=== PATIENT | female | born 1965 | race Caucasian/White ===

== ENCOUNTER 2017-10-30 18:52 | Emergency (ER) | payer MEDICAID ==
[~2017-10-30] VITALS: Ht 157.5 cm; Wt 45.9 kg
[~2017-10-30 18:52] MED LIST: ALBU8.5H4 IH; GEMF600T3 PO; IBUP-1984 PO; MECL-69 PO; ONDA4TAB6 PO; ONDA8TAB6 PO; PANT40TA4 PO; POLY17PO10 PO; POTA20TA19 PO
[2017-10-30 18:54] VITALS: BP 124/85
[2017-10-30] MEDS ORDERED: TETanus/Pertussis (Acell)/Diphther VAC/PF (Tdap-Adult) 0.5ml syringe IM ONE (20:10)
[2017-10-30] MEDS ORDERED: bacitracin 15gm ointment TP ONE (20:10)
[2017-10-30] MEDS ORDERED: HYDR-565 PO (20:24)
[2017-10-30] MEDS ORDERED: ONDA4TAB9 PO (20:24)
[2017-10-30] MEDS ORDERED: ondansetron 4mg rapidly disintigrating tab PO ONE (20:25)
[2017-10-30] MEDS ORDERED: HYDROcodone/acetaminophen 10/325mg tab PO ONE (20:25)
== END 2017-10-30 20:44 | disposition home or self-care (01) ==
LOC: ER 18:52
DX: S43.401A Unspecified sprain of right shoulder joint, initial encounter (principal); S50.11XA Contusion of right forearm, initial encounter; S80.812A Abrasion, left lower leg, initial encounter; S80.811A Abrasion, right lower leg, initial encounter; E78.00 Pure hypercholesterolemia, unspecified; J44.9 Chronic obstructive pulmonary disease, unspecified; K21.9 Gastro-esophageal reflux disease without esophagitis; G89.29 Other chronic pain; Z98.890 Other specified postprocedural states; Z90.49 Acquired absence of other specified parts of digestive tract; Z88.0 Allergy status to penicillin; Z88.5 Allergy status to narcotic agent; Z79.899 Other long term (current) drug therapy; V29.9XXA Motorcycle rider (driver) (passenger) injured in unspecified traffic accident, initial encounter; Y93.89 Activity, other specified; Y92.413 State road as the place of occurrence of the external cause; Y99.9 Unspecified external cause status
CPT/HCPCS: 73090; 73130; 90471; 90715; 99284; A4565; A6255; A6449

== ENCOUNTER 2017-11-04 13:48 | Emergency (ER) | payer MEDICAID ==
[~2017-11-04] VITALS: Ht 156.2 cm; Wt 45.0 kg
[~2017-11-04 13:48] MED LIST changes: +HYDR-565 PO; +ONDA4TAB9 PO
[2017-11-04 16:53] VITALS: BP 122/81
== END 2017-11-04 16:54 | disposition home or self-care (01) ==
LOC: ER 13:53
DX: S83.91XA Sprain of unspecified site of right knee, initial encounter (principal); S10.91XA Abrasion of unspecified part of neck, initial encounter; S60.811A Abrasion of right wrist, initial encounter; S40.211A Abrasion of right shoulder, initial encounter; E78.00 Pure hypercholesterolemia, unspecified; J44.9 Chronic obstructive pulmonary disease, unspecified; G89.29 Other chronic pain; K21.9 Gastro-esophageal reflux disease without esophagitis; Z90.49 Acquired absence of other specified parts of digestive tract; Z88.0 Allergy status to penicillin; Z88.5 Allergy status to narcotic agent; Z79.899 Other long term (current) drug therapy; W18.39XA Other fall on same level, initial encounter; Y93.89 Activity, other specified; Y92.89 Other specified places as the place of occurrence of the external cause; Y99.8 Other external cause status
CPT/HCPCS: 29505; 72040; 73502; 73564; 73610; 99284

== ENCOUNTER 2018-03-29 18:36 | Emergency (ER) | payer MEDICAID ==
[~2018-03-29] VITALS: Ht 157.5 cm; Wt 45.0 kg
[~2018-03-29 18:36] MED LIST changes: -HYDR-565 PO; -ONDA4TAB9 PO
[2018-03-29] MEDS ORDERED: metoclopramide 5 mg/ml inj IV ONE (19:25)
[2018-03-29] MEDS ORDERED: diphenhydrAMINE 50 mg/ml inj IV ONE (19:25)
[2018-03-29] MEDS ORDERED: normal saline 1000ML IV soln IVB ONE (19:25)
[2018-03-29] MEDS ORDERED: LORazepam 2 mg/ml vial IV ONE (19:25)
[2018-03-29 20:44] VITALS: BP 101/58
== END 2018-03-29 20:46 | disposition home or self-care (01) ==
LOC: ER 18:37
DX: G43.909 Migraine, unspecified, not intractable, without status migrainosus (principal); E78.00 Pure hypercholesterolemia, unspecified; J44.9 Chronic obstructive pulmonary disease, unspecified; K21.9 Gastro-esophageal reflux disease without esophagitis; G89.29 Other chronic pain; Z90.49 Acquired absence of other specified parts of digestive tract; Z88.0 Allergy status to penicillin; Z88.5 Allergy status to narcotic agent; Z79.899 Other long term (current) drug therapy
CPT/HCPCS: 70450; 96374; 96375; 99284; J1200; J2060; J2765; J7030

== ENCOUNTER 2018-04-14 00:32 | Emergency (ER) | payer MEDICAID ==
[~2018-04-14] VITALS: Ht 154.9 cm; Wt 42.0 kg
[2018-04-14 00:44] VITALS: BP 140/72
== END 2018-04-14 01:53 | disposition left against medical advice (07) ==
LOC: ER 00:32
DX: M79.642 Pain in left hand (principal); Z53.21 Procedure and treatment not carried out due to patient leaving prior to being seen by health care provider

== ENCOUNTER 2020-02-13 18:03 | Emergency (ER) | payer MEDICAID ==
[~2020-02-13] VITALS: Ht 157.5 cm; Wt 44.3 kg
[~2020-02-13 18:03] MED LIST changes: +CEPH-571 PO; -GEMF600T3 PO; +GEMF600T89 PO
--- NOTE | 2020-02-13 19:12 | NUR ---
LAB DRAW DONE BY FLOTATION TANK OPERATOR
[2020-02-13 19:27] LABS: URINE HCG NEGATIVE (NEG)
[2020-02-13 19:31] LABS: BASOPHILS % (AUTO) 0.5 % (0-1); EOSINOPHILS # (AUTO) 0.1 X10'3 (0-0.9); EOSINOPHILS % (AUTO) 0.6 % (0-6); HEMATOCRIT 46.7 % (35.0-45.0); HEMOGLOBIN 15.7 g/dl (12.0-16.0); LYMPHOCYTES # (AUTO) 3.3 X10'3 (1.1-4.8); LYMPHOCYTES % (AUTO) 33.8 % (21-51); MEAN CORPUSCULAR HEMOGLOBIN 32.9 PG (27.0-31.0); MEAN CORPUSCULAR HGB CONC 33.6 g/dL (33.0-36.5); MEAN CORPUSCULAR VOLUME 97.7 FL (78-98); MEAN PLATELET VOLUME 9.2 FL (7.4-10.4); MONOCYTES # (AUTO) 0.7 X10'3 (0-0.9); MONOCYTES % (AUTO) 7.5 % (2-12); NEUTROPHILS # (AUTO) 5.6 X10'3 (1.8-7.7); NEUTROPHILS % (AUTO) 57.6 % (42-75); PLATELET COUNT 246 X10'3 (140-440); RED BLOOD COUNT 4.78 X10'6 (4.20-5.60); WHITE BLOOD COUNT 9.7 X10'3 (4.5-11.0)
[2020-02-13 19:33] LABS: CLARITY,URINE CLEAR (Clear); COLOR,URINE STRAW (Yellow); GLUCOSE, URINE NEGATIVE (Neg); KETONES,URINE NEGATIVE (Neg); LEUKOCYTE ESTERASE ,URINE NEGATIVE (Neg); NITRITES, URINE NEGATIVE (Neg); OCCULT BLOOD,URINE NEGATIVE (Neg); PROTEIN,URINE NEGATIVE (Neg); UROBILINOGEN,URINE 0.2 E.U/dL (0.2-1.0)
[2020-02-13] MEDS ORDERED: LIDOcaine Viscous 15ml cup MM ONE (19:40)
[2020-02-13] MEDS ORDERED: mag hydrox/Alum hydrox/simeth 30ml oral suspension PO ONE (19:40)
[2020-02-13 19:45] LABS: UA COLLECTION TYPE CLN CATCH MIDSTREAM
[2020-02-13 19:46] LABS: ALANINE AMINOTRANSFERASE 16 U/L (12-78); ALBUMIN/GLOBULIN RATIO 1.2 (1.1-1.5); ALKALINE PHOSPHATASE 170 IU/L (46-116); ANION GAP 11 (8-16); ASPARTATE AMINO TRANSFERASE 22 U/L (10-37); BILIRUBIN,TOTAL 0.2 MG/DL (0.1-1.0); BLOOD UREA NITROGEN 11 MG/DL (7-18); BUN/CREATININE RATIO 13.1 (6.6-38.0); CALCIUM 9.2 MG/DL (8.5-10.1); CHLORIDE 104 MMOL/L (99-107); CREATININE 0.84 MG/DL (0.40-0.90); GLUCOSE 99 MG/DL (70-104); LIPASE 211 U/L (73-393); POTASSIUM 3.7 MMOL/L (3.5-5.1); SODIUM 141 MMOL/L (135-145); TOTAL CARBON DIOXIDE 25.8 MMOL/L (24-32); TOTAL PROTEIN 7.4 G/DL (6.4-8.2); eGFR 71 ML/MIN
[2020-02-13] MEDS ORDERED: OMEP40CA13 PO (20:43)
[2020-02-13] MEDS ORDERED: SUCR1TAB PO (20:43)
[2020-02-13 20:53] VITALS: BP 138/72
== END 2020-02-13 20:57 | disposition home or self-care (01) ==
LOC: ER 18:04
DX: R10.13 Epigastric pain (principal); R11.0 Nausea; J44.9 Chronic obstructive pulmonary disease, unspecified; K21.9 Gastro-esophageal reflux disease without esophagitis; G89.29 Other chronic pain; F41.9 Anxiety disorder, unspecified; F32.9 Major depressive disorder, single episode, unspecified; F17.210 Nicotine dependence, cigarettes, uncomplicated; Z90.49 Acquired absence of other specified parts of digestive tract; Z98.890 Other specified postprocedural states; Z88.0 Allergy status to penicillin; Z88.5 Allergy status to narcotic agent; Z79.2 Long term (current) use of antibiotics; Z79.899 Other long term (current) drug therapy
CPT/HCPCS: 36415; 80053; 81003; 81025; 83690; 85025; 99283

== ENCOUNTER 2022-07-05 23:35 | Emergency (ER) | payer MEDICAID ==
[~2022-07-05] VITALS: Ht 157.5 cm; Wt 43.2 kg
[~2022-07-05 23:35] MED LIST changes: -PANT40TA4 PO; +PANT40TA54 PO; +POTA-207 PO; -POTA20TA19 PO; +SUCR1TAB PO
[2022-07-05 23:57] LABS: BASOPHILS % (AUTO) 0.3 % (0-1); EOSINOPHILS % (AUTO) 0.3 % (0-6); HEMATOCRIT 43.3 % (35.0-45.0); HEMOGLOBIN 14.8 g/dl (12.0-16.0); LYMPHOCYTES # (AUTO) 2.7 X10'3 (1.1-4.8); LYMPHOCYTES % (AUTO) 29.5 % (21-51); MEAN CORPUSCULAR HEMOGLOBIN 32.2 PG (27.0-31.0); MEAN CORPUSCULAR HGB CONC 34.1 g/dL (33.0-36.5); MEAN CORPUSCULAR VOLUME 94.5 FL (78-98); MEAN PLATELET VOLUME 8.6 FL (7.4-10.4); MONOCYTES # (AUTO) 0.7 X10'3 (0-0.9); NEUTROPHILS # (AUTO) 5.7 X10'3 (1.8-7.7); NEUTROPHILS % (AUTO) 61.9 % (42-75); PLATELET COUNT 243 X10'3 (140-440); RED BLOOD COUNT 4.58 X10'6 (4.20-5.60); RED CELL DISTRIBUTION WIDTH 13.7 % (11.5-14.5); WHITE BLOOD COUNT 9.2 X10'3 (4.5-11.0)
[2022-07-06 00:07] LABS: ALANINE AMINOTRANSFERASE 16 U/L (12-78); ALBUMIN 3.7 G/DL (3.4-5.0); ALKALINE PHOSPHATASE 176 IU/L (46-116); ANION GAP 14 (8-16); ASPARTATE AMINO TRANSFERASE 17 U/L (10-37); BILIRUBIN,TOTAL 0.2 MG/DL (0.1-1.0); BLOOD UREA NITROGEN 6 MG/DL (7-18); BUN/CREATININE RATIO 10.3 (6.6-38.0); CALCIUM 9.2 MG/DL (8.5-10.1); CHLORIDE 104 MMOL/L (99-107); CREATININE 0.58 MG/DL (0.40-0.90); GLUCOSE 107 MG/DL (70-104); POTASSIUM 3.4 MMOL/L (3.5-5.1); SODIUM 142 MMOL/L (135-145); TOTAL CARBON DIOXIDE 23.6 MMOL/L (24-32); TOTAL PROTEIN 7.3 G/DL (6.4-8.2); eGFR > 90 ML/MIN
[2022-07-06] MEDS ORDERED: predniSONE 20 mg tablet PO ONE (00:40)
[2022-07-06] MEDS ORDERED: ipratropium/albuterol 3ml nebule NEB ONE (00:40)
[2022-07-06] MEDS ORDERED: PRED20TA PO (01:11)
[2022-07-06] MEDS ORDERED: BUDE10.22 INH (01:11)
[2022-07-06] MEDS ORDERED: ALBU18HF2 INH (01:11)
[2022-07-06 01:36] VITALS: BP 126/60
== END 2022-07-06 01:38 | disposition home or self-care (01) ==
LOC: ER 23:35
DX: J44.1 Chronic obstructive pulmonary disease with (acute) exacerbation (principal); J02.9 Acute pharyngitis, unspecified; R10.84 Generalized abdominal pain; R06.02 Shortness of breath; R09.89 Other specified symptoms and signs involving the circulatory and respiratory systems; R05.9 Cough, unspecified; E78.00 Pure hypercholesterolemia, unspecified; K21.9 Gastro-esophageal reflux disease without esophagitis; G89.29 Other chronic pain; F41.9 Anxiety disorder, unspecified; F32.A Depression, unspecified; F17.200 Nicotine dependence, unspecified, uncomplicated; Z90.49 Acquired absence of other specified parts of digestive tract; Z98.890 Other specified postprocedural states; Z88.5 Allergy status to narcotic agent; Z88.0 Allergy status to penicillin; Z88.8 Allergy status to other drugs, medicaments and biological substances; Z79.2 Long term (current) use of antibiotics; Z79.899 Other long term (current) drug therapy
CPT/HCPCS: 36415; 71045; 80053; 83880; 84484; 85025; 93005; 94640; 99285; J7512; 94760

== ENCOUNTER 2022-08-19 11:49 | Emergency (ER) | payer MEDICAID ==
[~2022-08-19] VITALS: Ht 157.5 cm; Wt 40.5 kg
[~2022-08-19 11:49] MED LIST changes: +ALBU18HF2 INH; +BUDE10.22 INH
[2022-08-19 12:05] VITALS: BP 138/74
[2022-08-19 12:35] LABS: BASOPHILS # (AUTO) 0.1 X10'3 (0-0.2); BASOPHILS % (AUTO) 0.7 % (0-1); EOSINOPHILS % (AUTO) 0.2 % (0-6); HEMATOCRIT 43.4 % (35.0-45.0); HEMOGLOBIN 14.6 g/dl (12.0-16.0); LYMPHOCYTES % (AUTO) 32.5 % (21-51); MEAN CORPUSCULAR HEMOGLOBIN 32.2 PG (27.0-31.0); MEAN CORPUSCULAR HGB CONC 33.6 g/dL (33.0-36.5); MEAN CORPUSCULAR VOLUME 95.7 FL (78-98); MONOCYTES # (AUTO) 0.7 X10'3 (0-0.9); MONOCYTES % (AUTO) 8.1 % (2-12); NEUTROPHILS # (AUTO) 5.4 X10'3 (1.8-7.7); NEUTROPHILS % (AUTO) 58.5 % (42-75); PLATELET COUNT 216 X10'3 (140-440); RED BLOOD COUNT 4.54 X10'6 (4.20-5.60); RED CELL DISTRIBUTION WIDTH 13.9 % (11.5-14.5); WHITE BLOOD COUNT 9.2 X10'3 (4.5-11.0)
[2022-08-19 12:52] LABS: ALANINE AMINOTRANSFERASE 17 U/L (12-78); ALBUMIN 3.7 G/DL (3.4-5.0); ALBUMIN/GLOBULIN RATIO 1.2 (1.1-1.5); ALKALINE PHOSPHATASE 113 IU/L (46-116); ANION GAP 12 (8-16); ASPARTATE AMINO TRANSFERASE 21 U/L (10-37); BILIRUBIN,TOTAL 0.3 MG/DL (0.1-1.0); BLOOD UREA NITROGEN 6 MG/DL (7-18); BUN/CREATININE RATIO 8.3 (6.6-38.0); CALCIUM 8.8 MG/DL (8.5-10.1); CHLORIDE 103 MMOL/L (99-107); CREATININE 0.72 MG/DL (0.40-0.90); GLUCOSE 122 MG/DL (70-104); POTASSIUM 3.3 MMOL/L (3.5-5.1); SODIUM 140 MMOL/L (135-145); TOTAL CARBON DIOXIDE 24.7 MMOL/L (24-32); TOTAL PROTEIN 6.7 G/DL (6.4-8.2); eGFR 84 ML/MIN
[2022-08-19 12:55] LABS: LIPASE 158 U/L (73-393)
[2022-08-19] MEDS ORDERED: mag hydrox/Alum hydrox/simeth 30ml oral suspension PO ONE (14:00)
[2022-08-19] MEDS ORDERED: pantoprazole 40mg Tablet.DR PO ONE (14:00)
[2022-08-19] MEDS ORDERED: LIDOcaine Viscous 15ml cup MM ONE (14:00)
[2022-08-19 14:14] LABS: CLARITY,URINE CLEAR (Clear); COLOR,URINE YELLOW (Yellow); GLUCOSE, URINE NEGATIVE (Neg); KETONES,URINE NEGATIVE (Neg); LEUKOCYTE ESTERASE ,URINE NEGATIVE (Neg); NITRITES, URINE NEGATIVE (Neg); OCCULT BLOOD,URINE NEGATIVE (Neg); PROTEIN,URINE NEGATIVE (Neg); UROBILINOGEN,URINE 0.2 E.U/dL (0.2-1.0)
[2022-08-19 14:15] LABS: UA COLLECTION TYPE NON-SPECIFIED
[2022-08-19 14:16] LABS: URINE HCG NEGATIVE (NEG)
[2022-08-19] MEDS ORDERED: FAMO40TA73 PO (15:24)
[2022-08-19] MEDS ORDERED: MAG355OR18 PO (15:24)
== END 2022-08-19 15:32 | disposition home or self-care (01) ==
LOC: ER 11:50
DX: R10.30 Lower abdominal pain, unspecified (principal); R19.7 Diarrhea, unspecified; M25.511 Pain in right shoulder; J44.9 Chronic obstructive pulmonary disease, unspecified; K21.9 Gastro-esophageal reflux disease without esophagitis; G89.29 Other chronic pain; M54.50 Low back pain, unspecified; F17.200 Nicotine dependence, unspecified, uncomplicated; Z88.0 Allergy status to penicillin; Z88.5 Allergy status to narcotic agent; Z90.49 Acquired absence of other specified parts of digestive tract; Z98.890 Other specified postprocedural states
CPT/HCPCS: 36415; 71045; 80053; 81003; 81025; 83690; 84484; 85025; 93005; 99285

== ENCOUNTER 2023-01-01 17:09 | Emergency (ER) | payer MEDICAID ==
[~2023-01-01] VITALS: Ht 157.5 cm; Wt 42.7 kg
[~2023-01-01 17:09] MED LIST changes: +FAMO40TA73 PO
[2023-01-01 17:13] VITALS: BP 142/77
[2023-01-01] MEDS ORDERED: LIDOcaine Viscous 15ml cup MM ONE (17:55)
== END 2023-01-01 18:55 | disposition home or self-care (01) ==
LOC: ER 17:10
DX: B34.9 Viral infection, unspecified (principal); Z20.822 Contact with and (suspected) exposure to COVID-19; J02.9 Acute pharyngitis, unspecified; E78.00 Pure hypercholesterolemia, unspecified; J44.9 Chronic obstructive pulmonary disease, unspecified; K21.9 Gastro-esophageal reflux disease without esophagitis; G89.29 Other chronic pain; M54.9 Dorsalgia, unspecified; F31.9 Bipolar disorder, unspecified; Z88.0 Allergy status to penicillin; Z88.5 Allergy status to narcotic agent; Z79.899 Other long term (current) drug therapy
CPT/HCPCS: 87081; 87635; 87880; 99283; C9803

== ENCOUNTER 2023-06-08 13:50 | Emergency (ER) | payer MEDICAID ==
[~2023-06-08] VITALS: Ht 157.5 cm; Wt 39.0 kg
[2023-06-08 14:06] LABS: BASOPHILS % (AUTO) 0.4 % (0-1); EOSINOPHILS % (AUTO) 0.3 % (0-6); HEMATOCRIT 42.2 % (35.0-45.0); HEMOGLOBIN 14.2 g/dl (12.0-16.0); LYMPHOCYTES # (AUTO) 2.4 X10'3 (1.1-4.8); LYMPHOCYTES % (AUTO) 36.8 % (21-51); MEAN CORPUSCULAR HEMOGLOBIN 31.5 PG (27.0-31.0); MEAN CORPUSCULAR HGB CONC 33.6 g/dL (33.0-36.5); MEAN PLATELET VOLUME 8.5 FL (7.4-10.4); MONOCYTES # (AUTO) 0.7 X10'3 (0-0.9); MONOCYTES % (AUTO) 10.2 % (2-12); NEUTROPHILS # (AUTO) 3.4 X10'3 (1.8-7.7); NEUTROPHILS % (AUTO) 52.3 % (42-75); PLATELET COUNT 225 X10'3 (140-440); RED BLOOD COUNT 4.49 X10'6 (4.20-5.60); RED CELL DISTRIBUTION WIDTH 14.5 % (11.5-14.5); WHITE BLOOD COUNT 6.5 X10'3 (4.5-11.0)
[2023-06-08 14:19] LABS: ALANINE AMINOTRANSFERASE 20 U/L (12-78); ALBUMIN 3.8 G/DL (3.4-5.0); ALKALINE PHOSPHATASE 159 IU/L (46-116); ANION GAP 9 (8-16); ASPARTATE AMINO TRANSFERASE 22 U/L (10-37); BILIRUBIN,TOTAL 0.3 MG/DL (0.1-1.0); BLOOD UREA NITROGEN 8 MG/DL (7-18); BUN/CREATININE RATIO 10.7 (10.0-20.0); CALCIUM 9.4 MG/DL (8.5-10.1); CHLORIDE 103 MMOL/L (99-107); CREATININE 0.75 MG/DL (0.40-0.90); GLUCOSE 109 MG/DL (70-104); SODIUM 138 MMOL/L (135-145); TOTAL CARBON DIOXIDE 26.1 MMOL/L (24-32); TOTAL PROTEIN 7.5 G/DL (6.4-8.2); eCRCL 51 ML/MIN; eGFR 80 ML/MIN
[2023-06-08 14:26] LABS: PRO BRAIN NATRIURETIC PEPTIDE 65 PG/ML (0-125)
[2023-06-08 17:20] VITALS: BP 141/81
[2023-06-08] MEDS ORDERED: ONDA4TAB12 PO (17:45)
[2023-06-08] MEDS ORDERED: FAMO20TA47 PO (17:45)
[2023-06-08 17:58] VITALS: PULSE 68; RESP 18; TEMP 98.1; O2SAT 98
== END 2023-06-08 17:58 | disposition home or self-care (01) ==
LOC: ER 13:51
DX: K52.9 Noninfective gastroenteritis and colitis, unspecified (principal); R07.9 Chest pain, unspecified; E78.00 Pure hypercholesterolemia, unspecified; J44.9 Chronic obstructive pulmonary disease, unspecified; K21.9 Gastro-esophageal reflux disease without esophagitis; F41.9 Anxiety disorder, unspecified; G89.29 Other chronic pain; M54.9 Dorsalgia, unspecified; Z88.0 Allergy status to penicillin; Z88.5 Allergy status to narcotic agent; Z79.899 Other long term (current) drug therapy
CPT/HCPCS: 36415; 71046; 80053; 83880; 84484; 85025; 93005; 99285

== ENCOUNTER 2023-06-19 15:47 | Emergency (ER) | payer MEDICAID ==
[~2023-06-19] VITALS: Ht 160 cm; Wt 45.0 kg
[~2023-06-19 15:47] MED LIST changes: +FAMO20TA47 PO; +ONDA4TAB12 PO
[2023-06-19 15:50] VITALS: BP 147/72; PULSE 71; RESP 18; TEMP 97.6; O2SAT 100
[2023-06-19] MEDS ORDERED: TETanus/Pertussis (Acell)/Diphther VAC/PF (Tdap-Adult) 0.5ml syringe IMVAC ONE (16:35)
[2023-06-19] MEDS ORDERED: bacitracin 15gm ointment TP STA (16:38)
[2023-06-19] MEDS ORDERED: LIDOcaine 1% W/epiNEPHrine 1:100,000 20ml vial IJ STA (16:44)
== END 2023-06-19 17:53 | disposition home or self-care (01) ==
LOC: ER 15:47
DX: S61.012A Laceration without foreign body of left thumb without damage to nail, initial encounter (principal); J44.9 Chronic obstructive pulmonary disease, unspecified; K21.9 Gastro-esophageal reflux disease without esophagitis; G89.29 Other chronic pain; M54.9 Dorsalgia, unspecified; F31.9 Bipolar disorder, unspecified; Z88.0 Allergy status to penicillin; Z88.5 Allergy status to narcotic agent; Z79.899 Other long term (current) drug therapy; X58.XXXA Exposure to other specified factors, initial encounter; Y93.89 Activity, other specified; Y92.89 Other specified places as the place of occurrence of the external cause; Y99.8 Other external cause status
CPT/HCPCS: 12001; 90471; 90715; 99283; A6449

== ENCOUNTER 2023-06-24 20:59 | Emergency (ER) | payer MEDICAID ==
[~2023-06-24] VITALS: Ht 157.5 cm; Wt 42.6 kg
[2023-06-24 21:09] VITALS: BP 141/73; PULSE 86; RESP 18; TEMP 99; O2SAT 95
[2023-06-24] MEDS ORDERED: acetaminophen 325mg tablet PO ONE (21:40)
[2023-06-24] MEDS ORDERED: cephalexin 250mg capsule PO ONE (21:40)
[2023-06-24] MEDS ORDERED: CEPH500C2 PO (21:43)
[2023-06-24] MEDS ORDERED: ACET325T65 PO (21:43)
== END 2023-06-24 21:58 | disposition home or self-care (01) ==
LOC: ER 21:00
DX: L03.012 Cellulitis of left finger (principal); J44.9 Chronic obstructive pulmonary disease, unspecified; K21.9 Gastro-esophageal reflux disease without esophagitis; E78.00 Pure hypercholesterolemia, unspecified; G89.29 Other chronic pain; F41.9 Anxiety disorder, unspecified; F32.9 Major depressive disorder, single episode, unspecified; Z90.49 Acquired absence of other specified parts of digestive tract; Z98.890 Other specified postprocedural states; Z72.89 Other problems related to lifestyle; Z88.0 Allergy status to penicillin; Z88.5 Allergy status to narcotic agent; Z88.8 Allergy status to other drugs, medicaments and biological substances; Z79.899 Other long term (current) drug therapy
CPT/HCPCS: 99283

== ENCOUNTER 2023-12-05 18:40 | Emergency (ER) | payer MEDICAID ==
[~2023-12-05] VITALS: Ht 157.5 cm; Wt 44.0 kg
[2023-12-05 19:25] LABS: BASOPHILS % (AUTO) 0.2 % (0-1); EOSINOPHILS % (AUTO) 0.2 % (0-6); HEMATOCRIT 40.9 % (35.0-45.0); HEMOGLOBIN 14.1 g/dl (12.0-16.0); LYMPHOCYTES # (AUTO) 2.1 X10'3 (1.1-4.8); LYMPHOCYTES % (AUTO) 29.2 % (21-51); MEAN CORPUSCULAR HEMOGLOBIN 32.3 PG (27.0-31.0); MEAN CORPUSCULAR HGB CONC 34.5 g/dL (33.0-36.5); MEAN CORPUSCULAR VOLUME 93.9 FL (78-98); MEAN PLATELET VOLUME 8.6 FL (7.4-10.4); MONOCYTES # (AUTO) 0.6 X10'3 (0-0.9); MONOCYTES % (AUTO) 7.9 % (2-12); NEUTROPHILS # (AUTO) 4.5 X10'3 (1.8-7.7); NEUTROPHILS % (AUTO) 62.5 % (42-75); PLATELET COUNT 160 X10'3 (140-440); RED BLOOD COUNT 4.36 X10'6 (4.20-5.60); RED CELL DISTRIBUTION WIDTH 13.6 % (11.5-14.5); WHITE BLOOD COUNT 7.2 X10'3 (4.5-11.0)
[2023-12-05 19:38] LABS: ALANINE AMINOTRANSFERASE 24 U/L (12-78); ALBUMIN 3.7 G/DL (3.4-5.0); ALKALINE PHOSPHATASE 126 IU/L (46-116); ANION GAP 10 (8-16); ASPARTATE AMINO TRANSFERASE 22 U/L (10-37); BILIRUBIN,TOTAL 0.3 MG/DL (0.1-1.0); BLOOD UREA NITROGEN 6 MG/DL (7-18); BUN/CREATININE RATIO 9.8 (10.0-20.0); CALCIUM 8.6 MG/DL (8.5-10.1); CHLORIDE 101 MMOL/L (99-107); CREATININE 0.61 MG/DL (0.40-0.90); GLUCOSE 98 MG/DL (70-104); POTASSIUM 3.4 MMOL/L (3.5-5.1); SODIUM 139 MMOL/L (135-145); TOTAL CARBON DIOXIDE 28.3 MMOL/L (24-32); TOTAL PROTEIN 7.5 G/DL (6.4-8.2); eCRCL 70 ML/MIN; eGFR > 90 ML/MIN
[2023-12-05 19:45] LABS: PRO BRAIN NATRIURETIC PEPTIDE < 30 PG/ML (0-125)
[2023-12-06 00:23] VITALS: BP 114/77; PULSE 85; RESP 16; TEMP 98.6; O2SAT 96
[2023-12-06] MEDS ORDERED: iohexol 350MG/ML 100ml bottle IV ONE (22:27)
[2023-12-07] MEDS ORDERED: BECL7.3A7 (01:11)
[2023-12-07] MEDS ORDERED: QUET25TA PO (01:11)
== END 2023-12-06 00:32 | disposition home or self-care (01) ==
LOC: ER 18:40
DX: R07.89 Other chest pain (principal); Z20.822 Contact with and (suspected) exposure to COVID-19; E78.00 Pure hypercholesterolemia, unspecified; J44.9 Chronic obstructive pulmonary disease, unspecified; Z88.0 Allergy status to penicillin; Z88.5 Allergy status to narcotic agent; Z79.2 Long term (current) use of antibiotics; Z79.899 Other long term (current) drug therapy; Z90.49 Acquired absence of other specified parts of digestive tract
CPT/HCPCS: 36415; 71045; 80053; 83880; 84484; 85025; 87502; 87503; 87811; 93005; 99285; J3490; Q9967

== ENCOUNTER 2024-05-18 14:52 | Emergency (ER) | payer MEDICAID ==
[~2024-05-18] VITALS: Ht 157.5 cm; Wt 45.0 kg
[~2024-05-18 14:52] MED LIST changes: -ALBU18HF2 INH; -CEPH-571 PO; -FAMO40TA73 PO; -MECL-69 PO; -ONDA4TAB12 PO; -ONDA4TAB6 PO; -ONDA8TAB6 PO; -POLY17PO10 PO; +PRED10TA PO; +QUET25TA PO
[2024-05-18 14:59] VITALS: TEMP 98.6
[2024-05-18 15:41] LABS: BASOPHILS % (AUTO) 0.4 % (0-1); EOSINOPHILS % (AUTO) 0.3 % (0-6); HEMATOCRIT 41.1 % (35.0-45.0); LYMPHOCYTES # (AUTO) 0.4 X10'3 (1.1-4.8); LYMPHOCYTES % (AUTO) 4.6 % (21-51); MEAN CORPUSCULAR HGB CONC 34.1 g/dL (33.0-36.5); MEAN CORPUSCULAR VOLUME 96.8 FL (78-98); MEAN PLATELET VOLUME 9.2 FL (7.4-10.4); MONOCYTES # (AUTO) 0.8 X10'3 (0-0.9); MONOCYTES % (AUTO) 9.7 % (2-12); NEUTROPHILS # (AUTO) 7.2 X10'3 (1.8-7.7); PLATELET COUNT 209 X10'3 (140-440); RED BLOOD COUNT 4.24 X10'6 (4.20-5.60); RED CELL DISTRIBUTION WIDTH 14.3 % (11.5-14.5); WHITE BLOOD COUNT 8.5 X10'3 (4.5-11.0)
[2024-05-18 15:50] LABS: ALANINE AMINOTRANSFERASE 29 U/L (12-78); ALBUMIN/GLOBULIN RATIO 1.2 (1.1-1.5); ALKALINE PHOSPHATASE 130 IU/L (46-116); ANION GAP 10 (8-16); ASPARTATE AMINO TRANSFERASE 23 U/L (10-37); BILIRUBIN,TOTAL 0.3 MG/DL (0.1-1.0); BLOOD UREA NITROGEN 8 MG/DL (7-18); BUN/CREATININE RATIO 10.3 (10.0-20.0); CALCIUM 9.3 MG/DL (8.5-10.1); CHLORIDE 100 MMOL/L (99-107); CREATININE 0.78 MG/DL (0.40-0.90); GLUCOSE 125 MG/DL (70-104); POTASSIUM 3.6 MMOL/L (3.5-5.1); PRO BRAIN NATRIURETIC PEPTIDE 57 PG/ML (0-125); SODIUM 137 MMOL/L (135-145); TOTAL CARBON DIOXIDE 26.8 MMOL/L (24-32); TOTAL PROTEIN 7.4 G/DL (6.4-8.2); eCRCL 56 ML/MIN; eGFR 76 ML/MIN
[2024-05-18 16:30] VITALS: RESP 16
[2024-05-18 17:04] LABS: D-DIMER 0.27 MG/L FEU (0-0.50)
[2024-05-18] MEDS ORDERED: BENZ-38 PO (17:14)
[2024-05-18 17:20] VITALS: BP 129/81; PULSE 74; O2SAT 98
== END 2024-05-18 17:24 | disposition home or self-care (01) ==
LOC: ER 14:53
DX: R07.9 Chest pain, unspecified (principal); R05.9 Cough, unspecified; E78.00 Pure hypercholesterolemia, unspecified; J45.909 Unspecified asthma, uncomplicated; J44.9 Chronic obstructive pulmonary disease, unspecified; K21.9 Gastro-esophageal reflux disease without esophagitis; G89.29 Other chronic pain; M54.9 Dorsalgia, unspecified; F41.9 Anxiety disorder, unspecified; F32.A Depression, unspecified; Z90.49 Acquired absence of other specified parts of digestive tract; Z98.890 Other specified postprocedural states; Z72.89 Other problems related to lifestyle; Z88.0 Allergy status to penicillin; Z88.8 Allergy status to other drugs, medicaments and biological substances; Z79.899 Other long term (current) drug therapy; Z79.52 Long term (current) use of systemic steroids
CPT/HCPCS: 36415; 71045; 80053; 83880; 84484; 85025; 85379; 93005; 99285

== ENCOUNTER 2024-07-30 17:20 | Emergency (ER) | payer MEDICAID ==
[~2024-07-30] VITALS: Ht 157.5 cm; Wt 41.6 kg
[2024-07-30 18:00] LABS: BILIRUBIN,URINE NEGATIVE (Neg); CLARITY,URINE CLEAR (Clear); COLOR,URINE YELLOW (Yellow); GLUCOSE, URINE NEGATIVE (Neg); KETONES,URINE NEGATIVE (Neg); LEUKOCYTE ESTERASE ,URINE NEGATIVE (Neg); NITRITES, URINE NEGATIVE (Neg); OCCULT BLOOD,URINE NEGATIVE (Neg); PROTEIN,URINE NEGATIVE (Neg); UROBILINOGEN,URINE 0.2 E.U/dL (0.2-1.0)
[2024-07-30 18:08] LABS: UA COLLECTION TYPE CLN CATCH MIDSTREAM
[2024-07-30 18:49] LABS: BASOPHILS % (AUTO) 0.6 % (0-1); EOSINOPHILS # (AUTO) 0.1 X10'3 (0-0.9); EOSINOPHILS % (AUTO) 0.7 % (0-6); HEMATOCRIT 44.3 % (35.0-45.0); HEMOGLOBIN 14.6 g/dl (12.0-16.0); LYMPHOCYTES # (AUTO) 2.1 X10'3 (1.1-4.8); LYMPHOCYTES % (AUTO) 27.1 % (21-51); MEAN CORPUSCULAR HEMOGLOBIN 32.7 PG (27.0-31.0); MEAN CORPUSCULAR HGB CONC 32.9 g/dL (33.0-36.5); MEAN CORPUSCULAR VOLUME 99.3 FL (78-98); MEAN PLATELET VOLUME 8.8 FL (7.4-10.4); MONOCYTES # (AUTO) 0.6 X10'3 (0-0.9); MONOCYTES % (AUTO) 8.1 % (2-12); NEUTROPHILS # (AUTO) 4.8 X10'3 (1.8-7.7); NEUTROPHILS % (AUTO) 63.5 % (42-75); PLATELET COUNT 233 X10'3 (140-440); RED BLOOD COUNT 4.46 X10'6 (4.20-5.60); RED CELL DISTRIBUTION WIDTH 14.3 % (11.5-14.5); WHITE BLOOD COUNT 7.6 X10'3 (4.5-11.0)
[2024-07-30 19:12] LABS: ALANINE AMINOTRANSFERASE 17 U/L (12-78); ALBUMIN 3.6 G/DL (3.4-5.0); ALBUMIN/GLOBULIN RATIO 1.1 (1.1-1.5); ALKALINE PHOSPHATASE 131 IU/L (46-116); ANION GAP 7 (8-16); ASPARTATE AMINO TRANSFERASE 19 U/L (10-37); BILIRUBIN,TOTAL 0.2 MG/DL (0.1-1.0); BLOOD UREA NITROGEN 7 MG/DL (7-18); BUN/CREATININE RATIO 9.2 (10.0-20.0); CALCIUM 8.9 MG/DL (8.5-10.1); CHLORIDE 104 MMOL/L (99-107); CREATININE 0.76 MG/DL (0.40-0.90); GLUCOSE 88 MG/DL (70-104); POTASSIUM 4.1 MMOL/L (3.5-5.1); SODIUM 142 MMOL/L (135-145); TOTAL CARBON DIOXIDE 30.7 MMOL/L (24-32); TOTAL PROTEIN 6.9 G/DL (6.4-8.2); eCRCL 53 ML/MIN; eGFR 78 ML/MIN
[2024-07-30 19:14] LABS: LIPASE 55 U/L (16-77); PRO BRAIN NATRIURETIC PEPTIDE 31 PG/ML (0-125)
[2024-07-30] MEDS: LIDOcaine 2% Viscous 15ml cup MM PRN (21:30)
[2024-07-30] MEDS: mag hydrox/Alum hydrox/simeth 30ml oral suspension PO ONE (21:30)
[2024-07-30 21:59] VITALS: BP 141/75; PULSE 75; RESP 14; TEMP 98.4; O2SAT 93
== END 2024-07-30 22:02 | disposition home or self-care (01) ==
LOC: ER 17:20
DX: R10.9 Unspecified abdominal pain (principal); R11.0 Nausea; K59.00 Constipation, unspecified; E78.00 Pure hypercholesterolemia, unspecified; J45.909 Unspecified asthma, uncomplicated; J44.9 Chronic obstructive pulmonary disease, unspecified; K21.9 Gastro-esophageal reflux disease without esophagitis; G89.29 Other chronic pain; M54.9 Dorsalgia, unspecified; F41.9 Anxiety disorder, unspecified; F32.A Depression, unspecified; Z90.49 Acquired absence of other specified parts of digestive tract; Z72.89 Other problems related to lifestyle; Z98.890 Other specified postprocedural states; Z88.0 Allergy status to penicillin; Z88.5 Allergy status to narcotic agent; Z79.51 Long term (current) use of inhaled steroids; Z79.52 Long term (current) use of systemic steroids; Z79.899 Other long term (current) drug therapy
CPT/HCPCS: 36415; 71045; 74176; 80053; 81003; 83690; 83880; 84484; 85025; 93005; 99285

== ENCOUNTER 2024-08-28 11:07 | Emergency (ER) | payer MEDICAID ==
[~2024-08-28] VITALS: Ht 157.5 cm; Wt 41.0 kg
[2024-08-28 11:14] VITALS: TEMP 97.6
[2024-08-28] MEDS: ketorolac trometh 15mg/ml vial 15 MG/ML ML IM ONE (13:30)
[2024-08-28] MEDS ORDERED: CLOP-32 PO (14:38)
[2024-08-28 14:58] VITALS: BP 137/78; PULSE 75; RESP 18; O2SAT 97
== END 2024-08-28 15:00 | disposition home or self-care (01) ==
LOC: ER 11:08
DX: I70.90 Unspecified atherosclerosis (principal); M79.604 Pain in right leg; G89.29 Other chronic pain; F17.200 Nicotine dependence, unspecified, uncomplicated; E78.00 Pure hypercholesterolemia, unspecified; J44.9 Chronic obstructive pulmonary disease, unspecified; K21.9 Gastro-esophageal reflux disease without esophagitis; Z88.0 Allergy status to penicillin; Z88.5 Allergy status to narcotic agent; Z88.8 Allergy status to other drugs, medicaments and biological substances; Z79.899 Other long term (current) drug therapy; Z90.49 Acquired absence of other specified parts of digestive tract; Z87.440 Personal history of urinary (tract) infections
CPT/HCPCS: 93926; 93971; 96372; 99285; J1885

== ENCOUNTER 2024-09-24 20:26 | Emergency (ER) | payer MEDICAID ==
[~2024-09-24] VITALS: Ht 157.5 cm; Wt 42.4 kg
[~2024-09-24 20:26] MED LIST changes: +CLOP-32 PO
[2024-09-24 20:29] VITALS: TEMP 98.1
[2024-09-24] MEDS ORDERED: iohexol 350MG/ML 100ml bottle IV ONE (21:28)
[2024-09-24] MEDS ORDERED: iohexol 350 MG/ML 50ML vial IV ONE (21:29)
[2024-09-24 21:44] LABS: BASOPHILS # (AUTO) 0.1 X10'3 (0-0.2); BASOPHILS % (AUTO) 1.1 % (0-1); EOSINOPHILS # (AUTO) 0.1 X10'3 (0-0.9); EOSINOPHILS % (AUTO) 1.5 % (0-6); HEMOGLOBIN 14.2 g/dl (12.0-16.0); LYMPHOCYTES # (AUTO) 1.7 X10'3 (1.1-4.8); MEAN CORPUSCULAR HEMOGLOBIN 33.7 PG (27.0-31.0); MEAN CORPUSCULAR HGB CONC 34.6 g/dL (33.0-36.5); MEAN CORPUSCULAR VOLUME 97.4 FL (78-98); MEAN PLATELET VOLUME 8.2 FL (7.4-10.4); MONOCYTES # (AUTO) 0.6 X10'3 (0-0.9); MONOCYTES % (AUTO) 7.5 % (2-12); NEUTROPHILS # (AUTO) 5.7 X10'3 (1.8-7.7); NEUTROPHILS % (AUTO) 68.9 % (42-75); PLATELET COUNT 348 X10'3 (140-440); RED BLOOD COUNT 4.21 X10'6 (4.20-5.60); RED CELL DISTRIBUTION WIDTH 14.1 % (11.5-14.5); WHITE BLOOD COUNT 8.3 X10'3 (4.5-11.0)
[2024-09-24 21:59] LABS: ALANINE AMINOTRANSFERASE 17 U/L (12-78); ALBUMIN 3.6 G/DL (3.4-5.0); ALBUMIN/GLOBULIN RATIO 0.9 (1.1-1.5); ALKALINE PHOSPHATASE 145 IU/L (46-116); ANION GAP 10 (8-16); ASPARTATE AMINO TRANSFERASE 15 U/L (10-37); BILIRUBIN,TOTAL 0.3 MG/DL (0.1-1.0); BLOOD UREA NITROGEN 8 MG/DL (7-18); CALCIUM 9.3 MG/DL (8.5-10.1); CHLORIDE 105 MMOL/L (99-107); GLUCOSE 88 MG/DL (70-104); POTASSIUM 3.7 MMOL/L (3.5-5.1); SODIUM 140 MMOL/L (135-145); TOTAL CARBON DIOXIDE 24.7 MMOL/L (24-32); TOTAL PROTEIN 7.4 G/DL (6.4-8.2); eCRCL 82 ML/MIN; eGFR > 90 ML/MIN
[2024-09-25] MEDS ORDERED: CLOP-32 PO (00:37)
[2024-09-25 00:59] VITALS: BP 132/69; PULSE 92; RESP 16; O2SAT 94
== END 2024-09-25 01:13 | disposition home or self-care (01) ==
LOC: ER 20:26
DX: I70.201 Unspecified atherosclerosis of native arteries of extremities, right leg (principal); E78.00 Pure hypercholesterolemia, unspecified; J44.9 Chronic obstructive pulmonary disease, unspecified; K21.9 Gastro-esophageal reflux disease without esophagitis; F17.200 Nicotine dependence, unspecified, uncomplicated; G89.29 Other chronic pain; Z88.0 Allergy status to penicillin; Z88.5 Allergy status to narcotic agent; Z88.8 Allergy status to other drugs, medicaments and biological substances; Z79.899 Other long term (current) drug therapy; Z87.440 Personal history of urinary (tract) infections; Z79.02 Long term (current) use of antithrombotics/antiplatelets; Z90.49 Acquired absence of other specified parts of digestive tract; Z98.890 Other specified postprocedural states
CPT/HCPCS: 36415; 75635; 80053; 85025; 99285; Q9967

== ENCOUNTER 2025-07-19 14:14 | Emergency (ER) | payer MEDICAID ==
[~2025-07-19] VITALS: Ht 152.4 cm; Wt 41.8 kg
--- NOTE | 2025-07-19 14:32 | Physician Documentation ---
History of Present Illness Stated Complaint: ABDOMINAL PAIN Time Seen by MD: 14:28 Primary Medical Doctor: [facility] Source: patient Mode of Arrival: POV Exam Limitations: no limitations HPI 59 y/o female with periumbilical pain x 1week. Pain radiates to back. Pain worse with po intake. Last BM was yesterday. States she gets heartburn but never gets pain this bad. She states "I take stomach medication but it is not helping it, I even took pepto bismo and it did not help." Pain is 9/10 in severity. Went to urgent care yesterday. Subjective fever. Also reports cough, nonproductive. No constipation, diarrhea, blood in stool, nausea or vomiting. Only prior abd sx cholecystectomy. Medication Reconciliation Allergies: Coded Allergies: Penicillins (Unverified Allergy, Unknown, 08/28/24) codeine (Unverified Allergy, Unknown, 08/28/24) hydrocodone (Unverified Allergy, Unknown, 08/28/24) Scheduled Budesonide/Formoterol Fumarate (Symbicort 80-4.5 Mcg Inhaler), 2 PUFFS INH Q12H Budesonide/Formoterol Fumarate (Symbicort 80-4.5 Mcg Inhaler), 2 PUFFS INH Q12H Clopidogrel Bisulfate (Plavix), 1 TAB PO DAILY Famotidine (Pepcid AC), 1 TAB PO DAILY Gemfibrozil (Gemfibrozil), 600 MG PO BID, (Reported) Potassium Chloride* (K-Dur*), 1 TABLET PO BID Prednisone (Prednisone), 0 PO DAILY Quetiapine Fumarate (Seroquel), 1 TAB PO HS, (Reported) Sucralfate (Sucralfate), 1 TAB PO Q8H Scheduled PRN Albuterol Inhaler* (Albuterol Inhaler*), 2 PUFFS IH Q4H PRN for SOB or wheezing, (Reported) Ibuprofen* (Motrin*), 400 MG PO Q6H PRN for pain, (Reported) Pantoprazole Sodium (Pantoprazole Sodium), 1 TABLET PO PRN PRN for GERD, (Reported) albuterol inhaler (Pro-Air Inhaler), 2 PUFFS INH Q4HPRN PRN for wheezing Past Medical History Past Medical History: Headache, Vertigo, Allergic Rhinitis, High Cholesterol, Asthma, COPD, GERD, UTI, Chronic Back Pain, Anxiety, Depression Past Surgical History: cholecystectomy, , other Other Past Family History: Vertigo (aunt) Father & Brother: HTN Alcohol Use: Occasionally Drug Use: none Lives with: Spouse, Family Lives In: Home Occupation: disabled Review of Systems All Other Systems at this time: Reviewed and Negative Physical Exam Physical Exam GENERAL: Alert, PATIENT IS TEARFUL WHEN TALKING ABOUT HER PAIN. HEENT: NCAT, EOMI, PERRL, normal oropharynx, moist oral mucosa. NECK: Supple, trachea midline. CARDIAC: Regular rate and rhythm, no murmurs, rubs, or gallops. Equal distal pulses. No lower extremity edema, cap refill less than 2 seconds. RESPIRATORY: Equal breath sounds, clear to auscultation bilaterally, no respiratory distress. GASTROINTESTINAL: Non distended, soft, ttp over central abdomen. No guarding or rebound. MUSCULOSKELETAL: Normal range of motion, nontender, no swelling. Normal gait. NEUROLOGICAL: Awake, alert, and oriented x 3. SKIN: Warm/dry, no pallor, no rash. PSYCH: Alert and appropriate. Affect congruent with mood. Speech is clear. Good eye contact. Medical Decision Making Differential Dx:Considerations: Include: AAA, -Complete, - Incomplete, -Inevitable, -Missed, -Threatened, Abruptio placentae, Angina/OR, Aortic dissection, Appendicitis, Bowel obstruction, Cholangitis, Cholelithasis, Constipation, Diverticular disease, Esophageal rupture, Esophagitis, Gastritis/PUD, Gastroenteritis, GI hemorrhage, Hernia, Hepatitis, Inflammatory BD, Ischemic bowel, Ovarian cyst/torsion, Pancreatitis, PID, Porphyria, Trauma, intraabdominal, Urinary obstruction, Urinary tract infection, Urolithiasis, Other Additional Comments GIVEN PATIENT'S PERSISTENT PAIN X 7DAYS WE COMPLETED LABS TO ASSESS WBC AND FOR SIGNS OF INFECTION, METABOLIC PROCESS. WE ALSO OBTAINED ABDOMINAL IMAGING STUDIES. Departure Time of Disposition: 18:03 Disposition: HOME / SELF CARE / HOMELESS Impression: Primary Impression: Abdominal pain Qualified Codes: R10.84 - Generalized abdominal pain Additional Impressions: Acute gastritis Qualified Codes: K29.01 - Acute gastritis with bleeding Viral syndrome Condition: Stable Discharge Instructions: Viral Respiratory Infection Additional Instructions: CONTINUE DEXILANT CAPA FREE DIET WE DISCUSSED Referrals: NO PRIMARY CARE PROVIDER (PCP) Prescriptions Polyethylene Glycol 3350* (Miralax*) 1 Packet Packet 1 PKT PO DAILY for constipation for 2 Days, #2 PKT dissolve in water Prov: LILIBETH FARNSWORTH NP 07/19/25 Azithromycin (Azithromycin) 250 Mg Tablet 1 TAB PO UD for 5 Days, #6 TAB 2 the first day followed by 1 for days 2-5 Prov: LILIBETH FARNSWORTH NP 07/19/25 Prednisone (Prednisone) 10 Mg Tablet 1 TAB PO BID for 5 Days, #10 TAB Prov: LILIBETH FARNSWORTH NP 07/19/25 albuterol inhaler (Pro-Air Inhaler) 8.5 Gm Inhaler 2 PUFFS INH Q4HPRN PRN for wheezing for 30 Days, #18 GM Prov: LILIBETH FARNSWORTH NP 07/19/25 Budesonide/Formoterol Fumarate (Symbicort 80-4.5 Mcg Inhaler) 80 Mcg-4.5 Mcg/Actuation Hfa.aer.ad 2 PUFFS INH Q12H for 30 Days, GM 0 Refills Prov: LILIBETH FARNSWORTH NP 07/19/25 Education Educated: Patient Educated regarding: diagnosis, treatment, need for follow up Signature Scribe Signature: X Attestation: The note accurately reflects work and decisions made by me.Priyanka DURAN 07/19/25 18:23 X HANDED OFF TO LILIBETH FARNSWORTH NP AT [address] SCAN STILL PENDING PRIYANKA RAMIREZ Jul 19, 2025 14:31 LILIBETH FARNSWORTH NP Jul 19, 2025 20:10
[2025-07-19 15:02] LABS: MEAN PLATELET VOLUME 9.0 FL (7.4-10.4); RED CELL DISTRIBUTION WIDTH 16.1 % (11.5-14.5)
[2025-07-19 15:26] LABS: CREATININE 0.60 MG/DL (0.40-0.90); TOTAL CARBON DIOXIDE 27.0 MMOL/L (24-32); eCRCL 67 ML/MIN; eGFR > 90 ML/MIN
[2025-07-19 17:37] VITALS: BP 136/83; PULSE 105; RESP 18; O2SAT 93
[2025-07-19] MEDS ORDERED: iohexol 300mg/ml 100ml inj. ONE (19:45)
[2025-07-19] MEDS ORDERED: BUDE10.22 INH (20:09)
[2025-07-19] MEDS ORDERED: ALBU8HFA INH (20:09)
[2025-07-19 20:16] LABS: LEUKOCYTE ESTERASE ,URINE TRACE (Neg); NITRITES, URINE NEGATIVE (Neg); OCCULT BLOOD,URINE NEGATIVE (Neg)
--- NOTE | 2025-07-19 20:16 | RADIOLOGY REPORT ---
Indication: ABDOMINAL PAIN Technique: CT axial images of the abdomen and pelvis are obtained with intravenous contrast. Coronal and sagittal reformats were obtained. Radiation Dose Information: CTDI volume is 5 mGy. Dose-length product is 204 mGy*cm Comparison: CT CT ABDOMEN PELVIS on DOS: 07/30/24 FINDINGS: Lung bases demonstrate pulmonary emphysematous changes. Adrenal glands, spleen, pancreas unremarkable. Heterogeneous right hepatic lobe lesion measuring 2 cm. Cholecystectomy. Kidneys demonstrate no hydronephrosis. Stomach is partially distended. Small bowel loops are normal in caliber. Moderate volume stool in the colon. No secondary signs for appendicitis. Abdominal aortic atherosclerotic disease. There is a fem-fem bypass graft. Bladder partially distended. No free pelvic fluid no inguinal lymphadenopathy. Moderate lumbar degenerative disc disease. IMPRESSION: Extensive atherosclerotic disease. Fem-fem bypass graft which appears patent. Cholecystectomy. Moderate volume stool in the colon. Right hepatic lobe heterogeneous lesion measuring 2 cm, probably hemangioma. Recommend multiphasic MRI abdomen in the nonemergent setting to further characterize. Findings as described
[2025-07-19 20:17] LABS: UA COLLECTION TYPE CLN CATCH MIDSTREAM
[2025-07-19 20:22] LABS: SQUAMOUS EPITHELIAL CELL,UR FEW /LPF (FEW)
--- NOTE | 2025-07-19 20:29 | RADIOLOGY REPORT ---
CHEST RADIOGRAPH Indication: cough and sore throat Technique: DI CHEST,SINGLE VIEW Comparison: None FINDINGS: The cardiac silhouette is unremarkable. The lungs demonstrate bilateral interstitial airspace opacities. The pulmonary vasculature is unremarkable. There is no pleural effusion. There is no pneumothorax. Atherosclerotic disease. IMPRESSION: Interstitial airspace opacities which could represent sequela of pulmonary edema, atypical infection, chronic lung changes/disease.
[2025-07-19] MEDS ORDERED: PRED10TA23 PO (20:35)
[2025-07-19] MEDS ORDERED: AZIT-103 PO (20:35)
[2025-07-19] MEDS ORDERED: POLY17PO10 PO (20:35)
[2025-07-19 20:56] VITALS: TEMP 98.3
== END 2025-07-19 20:58 | disposition home or self-care (01) ==
LOC: ER 14:15
DX: K29.01 Acute gastritis with bleeding (principal); E78.00 Pure hypercholesterolemia, unspecified; G89.29 Other chronic pain; J44.9 Chronic obstructive pulmonary disease, unspecified; K21.9 Gastro-esophageal reflux disease without esophagitis; F41.9 Anxiety disorder, unspecified; F32.A Depression, unspecified; Z87.440 Personal history of urinary (tract) infections; Z88.0 Allergy status to penicillin; Z88.5 Allergy status to narcotic agent; Z90.49 Acquired absence of other specified parts of digestive tract; Z79.899 Other long term (current) drug therapy; Z79.51 Long term (current) use of inhaled steroids; Z20.822 Contact with and (suspected) exposure to COVID-19
CPT/HCPCS: 36415; 71045; 74177; 80048; 81001; 83690; 85025; 87088; 87811; 99285; Q9967